=== PATIENT | male | born 1965 | race Caucasian/White ===

== ENCOUNTER 2021-03-21 14:49 | Emergency (ER) | payer OTHER ==
[~2021-03-21] VITALS: Ht 172.7 cm; Wt 86.2 kg
[2021-03-21] MEDS ORDERED: ACETAMINOPHEN ES 500 MG TABLET PO ONE (15:00)
--- NOTE | 2021-03-21 15:00 | NUR ---
see by Dr. Jalloh at bedside
--- NOTE | 2021-03-21 15:04 | NUR ---
Patient discharged to [employer] custody in stable condition. Written and verbal after care instructions given. Patient verbalizes understanding of instruction.
[2021-03-21] MEDS ORDERED: ACETAMINOPHEN ES 500 MG TABLET ONE (15:07)
--- NOTE | 2021-03-21 15:07 | NUR ---
tylenol po x 1
[2021-03-21 15:08] VITALS: BP 127/83
== END 2021-03-21 15:09 ==
LOC: ER 14:53
DX: R51.9 Headache, unspecified (principal)